=== PATIENT | male | born 1990 | race Caucasian/White ===

== ENCOUNTER 2020-08-25 09:30 | Emergency (ER) | payer MEDICAID ==
--- NOTE | 2020-08-25 10:58 | EDM.PDOC ---
ED HPI GENERAL MEDICAL PROBLEM - General Chief Complaint: Upper Extremity Injury/Pain Stated Complaint: B ARM NUMBNESS Time Seen by Provider: 08/25/20 10:39 Source of Information: Reports: Patient History Limitations: Reports: No Limitations - History of Present Illness INITIAL COMMENTS - FREE TEXT/NARRATIVE: Mr. Caruso is a very pleasant 30-year-old gentleman who now presents to the ED with sharp/stabbing pain along with tingling and numbness to the entirety of both of his upper extremities, for the past 2-1/2 to 3 weeks. His pain is made worse with certain movements. The patient denies associated neck pain, and other than certain arm movements, he has not noticed any modifiers of his symptoms. The patient states that he has been taking Advil for his symptoms. He has not sought medical evaluation for his symptoms prior to today. The patient states that he had less severe symptoms about 2 years ago. His symptoms resolved after about 1 week on their own. He did not seek medical evaluation at that time, either. Here in the ED, the patient is found to be hemodynamically stable, afebrile, saturating 99% on room air. Prior to 2-1/2 to 3 weeks ago, the patient denies having a recent fever, chills, sore throat, ear pain, nasal or sinus congestion, cough, dyspnea, chest pain, palpitations, nausea, vomiting, constipation, diarrhea, abdominal pain, urinary symptoms, recent weight gain or weight loss, recent bloody bowel movements or black bowel movements, recent joint aches, headaches, or rashes. The patient's PCP is Dr. Janak Mahoney. He has not received an influenza vaccine this season, and declined an offer to receive one here today. Bilateral Arm Pain Score (Numeric/FACES): 6 - Related Data Allergies Allergy/AdvReac Type Severity Reaction Status Date / Time No Known Allergies Allergy Verified 08/25/20 09:38 Home Meds: Home Meds . [No Known Home Meds] 08/25/20 [History] Past Medical History Oncologic (Cancer) History: Reports: Other (See Below) (Left testicular, s/p orchiectomy and CTx 2016) - Past Surgical History GI Surgical History: Reports: Appendectomy Musculoskeletal Surgical History: Reports: Other (See Below) (Right 5th finger I & D) Oncologic Surgical History: Reports: Other (See Below) (Left orchiectomy 2016) Social & Family History - Tobacco Use Tobacco Use Status *Q: Current Every Day Tobacco User Tobacco Use Within Last Twelve Months: Smokeless Tobacco (Chews 1/2 can per day) Years of Tobacco use: 17 Packs/Tins Daily: 0.5 Packs/Tins Daily Comment: Down from 1 ppd - Alcohol Use Alcohol Use History: Yes Alcohol Use Frequency: Socially - Recreational Drug Use Recreational Drug Use: No - Living Situation & Occupation Living situation: Reports: , with Spouse, with Family (5 kids) Occupation: Employed ([employer]) Review of Systems - Review of Systems Review Of Systems: Comprehensive ROS is negative, except as noted in HPI. ED EXAM, GENERAL - Physical Exam Exam: See Below Exam Limited By: No Limitations General Appearance: Alert, WD/WN, No Apparent Distress Eye Exam: Bilateral Eye: EOMI, Normal Inspection Ears: Normal External Exam, Hearing Grossly Normal Nose: Normal Inspection Throat/Mouth: Normal Inspection, Normal Lips, Normal Voice, No Airway Compromise Head: Atraumatic, Normocephalic Neck: Normal Inspection, Full Range of Motion Respiratory/Chest: No Respiratory Distress, Lungs Clear, Normal Breath Sounds, No Accessory Muscle Use Cardiovascular: Normal Peripheral Pulses, Regular Rate, Rhythm, No Edema, No Gallop, No JVD, No Murmur, No Rub Peripheral Pulses: 3+: Radial (L), Radial (R) GI/Abdominal: Normal Bowel Sounds, Soft, Non-Tender, No Organomegaly, No Distention, No Abnormal Bruit, No Mass Back Exam: Normal Inspection, Full Range of Motion, NT Extremities: Normal Inspection, Normal Range of Motion, No Pedal Edema, Normal Capillary Refill, Other (Both upper extremities are of normal temperature. Strong radial pulses bilaterally. Capillary refill under 2 seconds.) Neurological: Alert, Oriented, Normal Cognition, No Motor/Sensory Deficits, Other (Somewhat diminished handgrip strength bilaterally. Good wrist strength. Minimally diminished flexion and extension strength at both elbows. Good strength to abduction of both arms at the shoulders.) Psychiatric: Normal Affect Skin Exam: Warm, Dry, Intact, Normal Color, No Rash Course - Vital Signs Last Recorded V/S: Last Vital Signs Temp 36.7 C 08/25/20 09:35 Pulse 71 08/25/20 09:35 Resp 16 08/25/20 09:35 BP 138/70 08/25/20 09:35 Pulse Ox 99 08/25/20 09:35 - Re-Assessments/Exams Free Text/Narrative Re-Assessment/Exam: 08/25/20 10:51 As above, the patient has had tingling, numbness, and pain to both of his upper extremities for the past 2-1/2 to 3 weeks. On examination, both of his upper extremities are warm and well-perfused, with excellent distal pulses. There may be some weakness to his bilateral handgrips and flexion/extension at both elbows, although he is able to abduct both arms at the shoulders with good strength. I very much doubt a vascular etiology. A neurologic etiology is far more likely, and to affect both upper extremities, we would have to imagine some sort of lesion in the cervical spine, despite him not having any neck issues. I believe an MRI would be far superior to a CT scan to evaluate for such a lesion. I have ordered an outpatient MRI of the cervical spine without contrast, with the results to be forwarded to Dr. Mahoney. I recommended that the patient make appointment to follow-up with Dr. Mahoney one day after his MRI, in order to go over the results. Departure - Departure Time of Disposition: 10:53 Disposition: Home, Self-Care 01 Condition: Good Clinical Impression: Paresthesia and pain of both upper extremities - Discharge Information *PRESCRIPTION DRUG MONITORING PROGRAM REVIEWED*: Not Applicable *COPY OF PRESCRIPTION DRUG MONITORING REPORT IN PATIENT ANAT: Not Applicable Referrals: Janak Aranda MD [Primary Care Provider] - Forms: ED Department Discharge Additional Instructions: You were seen in the emergency room for 2-1/2 to 3 weeks of tingling, numbness, and pain to both of your arms. The cause of your symptoms is not known, but could be due to some sort of lesion, such as a herniated intervertebral disc, in your neck. An order for an MRI of your neck has been submitted. You will be contacted by the MRI scheduling people tomorrow, 08/26/2020. We recommend that you make an appointment to follow-up with your PCP, Dr. Janak Mahoney, the day after your MRI, in order to discuss the results. If you cannot see Dr. Mahoney himself, recommend that you follow-up with someone else in the c linic. If any other problems, please do not hesitate to return to the ER. Sepsis Event Note (ED) - Evaluation Sepsis Screening Result: No Definite Risk
== END 2020-08-25 11:09 | disposition home or self-care (01) ==
LOC: JD.ED 09:30
DX: M79.621 Pain in right upper arm (principal); M79.622 Pain in left upper arm; R20.2 Paresthesia of skin; F17.210 Nicotine dependence, cigarettes, uncomplicated
CPT/HCPCS: 99282; 99283